=== PATIENT | male | born 1945 | race Caucasian/White ===

== ENCOUNTER 2017-11-07 16:40 | Emergency (ER) | payer OTHER ==
[2017-11-07 16:52] VITALS: PULSE 68; O2SAT 98
[2017-11-07] MEDS ORDERED: Alum-Mag Hydrox-Simethicone Susp (30 mL) PO STA (17:34)
--- NOTE | 2017-11-07 17:43 | ED PDOC ---
HPI: Abdomen Time Seen by Provider: 11/07/17 17:33 Chief Complaint (Nursing): Abdominal Pain Chief Complaint (Provider): Abdominal Pain History Per: Patient History/Exam Limitations: no limitations Onset/Duration Of Symptoms: Days (x2) Outside of [place] travel?: No Current Symptoms Are (Timing): Still Present Severity: None Quality Of Discomfort: "Pain" Associated Symptoms: denies: Fever, Nausea, Vomiting, Diarrhea Exacerbating Factors: None Alleviating Factors: None Additional Complaint(s): 72 year old male with a past medical history of ulcer, hernia, hypertension, diabetes and hypercholesterolemia presents to the emergency department complaining of abdominal pain x2 days. The patient reports that he had an endoscopy 4 years ago and was diagnosed with ulcers. He states that he was prescribed medications with which he has been compliant but says they have not offered him any relief. Patient reports that his pain worsened between yesterday and today prompting him to come into the emergency room to be evaluated. Patient also complains of feeling bloated. Denies vomiting, black/ bloody stools, nausea, urinary symptoms, diarrhea. Of note: Patient also states that he has been compliant with his hypertension medication but his blood pressure is not being controlled. PMD: Jame Gould Past Medical History Reviewed: Historical Data, Nursing Documentation, Vital Signs Vital Signs: Last Vital Signs Temp 98.4 F 11/07/17 21:23 Pulse 68 11/07/17 21:23 Resp 18 11/07/17 21:23 BP 194/99 H 11/07/17 21:23 Pulse Ox 98 11/10/17 05:32 - Medical History PMH: Anxiety, Hiatal Hernia, HTN, Hypercholesterolemia - Surgical History Surgical History: Endoscopy (4years ago) - Family History Family History: States: Unknown Family Hx - Living Arrangements Living Arrangements: With Family - Social History Current smoker - smoking cessation education provided: No Ex-Smoker (has not smoked in the last 12 months): No Alcohol: None Drugs: Denies - Home Medications Home Medications: Ambulatory Orders Medication Instructions Recorded Cyclobenzaprine HCl [Flexeril] 5 mg PO BID PRN #15 tab 02/15/15 LORazepam [Ativan] 0.5 mg PO DAILY 02/15/15 Lisinopril 5 mg PO DAILY 02/15/15 Metformin Hydrochloride/Tisha 1 tab PO BID 02/15/15 [Janumet 1000 mg-50 mg] Metoprolol Tartrate [Lopressor] 50 mg PO DAILY 02/15/15 Omeprazole [Prilosec] 1 tab PO DAILY 02/15/15 Zolpidem Tartrate [Zolpidem] 10 mg PO DAILY 02/15/15 - Allergies Allergies/Adverse Reactions: Allergies Allergy/AdvReac Type Severity Reaction Status Date / Time aspirin Allergy Mild RASH Verified 11/07/17 16:52 Review of Systems ROS Statement: Except As Marked, All Systems Reviewed And Found Negative Gastrointestinal: Positive for: Abdominal Pain, Other (No black/bloody stools). Negative for: Nausea, Vomiting, Diarrhea Physical Exam - Reviewed Nursing Documentation Reviewed: Yes Vital Signs Reviewed: Yes - Physical Exam Appears: Positive for: Non-toxic, No Acute Distress Head Exam: Positive for: ATRAUMATIC, NORMAL INSPECTION, NORMOCEPHALIC Skin: Positive for: Normal Color, Warm, Dry. Negative for: Rash Eye Exam: Positive for: Normal appearance, EOMI, PERRL. Negative for: Scleral icterus Neck: Positive for: Normal, Painless ROM, Supple Cardiovascular/Chest: Positive for: Regular Rate, Rhythm, Chest Non Tender. Negative for: Gallop, Murmur, Tachycardia Respiratory: Positive for: Normal Breath Sounds. Negative for: Rales, Rhonchi, Wheezing, Respiratory Distress Gastrointestinal/Abdominal: Positive for: Bowel Sounds, Soft, Tenderness ( tenderness around hernia), Hernia (reducible midline ventral hernia 3 cm in length). Negative for: Mass, Guarding, Rebound Back: Positive for: Normal Inspection. Negative for: L CVA Tenderness, R CVA Tenderness, Vertebral Tenderness Extremity: Positive for: Normal ROM. Negative for: Tenderness, Deformity, Swelling Neurologic/Psych: Positive for: Alert, Oriented - Laboratory Results Result Diagrams: 11/07/17 17:54 11/07/17 17:54 - ECG O2 Sat by Pulse Oximetry: 98 (RA) Pulse Ox Interpretation: Normal Medical Decision Making Medical Decision Makin Initial Impression 72 year old male presenting with gastritis vs GERD vs Peptic Ulcer disease Initial Plan: * CMP * Lipase * CBC * Lidocaine 2% visou 15mL PO * Maalox Plus 30mL Morphine 4mg IVP * Reevaluation 1855 Labs reviewed show elevated white count of 1400. therfore CT scan will be perofrmed. Patient will be signed out to Dr. James at [address] scan. Documented by Delmy Parsons acting as a scribe for Tesha Sparks. All medical record entries made by the Scribe were at my direction and personally dictated by me. I have reviewed the chart and agree that the record accurately reflects my personal performance of the history, physical exam, medical decision making, and the department course for this patient. I have also personally directed, reviewed, and agree with the discharge instructions and disposition. Disposition - Clinical Impression Clinical Impression: Abdominal pain, Appendicitis, Left against medical advice - Patient ED Disposition Is Patient to be Admitted: Transfer of Care - Disposition Disposition: Against Medical Advice Disposition Time: 05:33 Condition: SERIOUS Additional Instructions: SIGA CON MENDOZA MDICO LO ANTES POSIBLE REGRESE A LA ER NARANJO PRONTO GUEVARA SEA POSIBLE PARA EL TRATAMIENTO DE LA APENDICITIS - ANTIBITICOS Y CIRUGA Instructions: Appendicitis in Adults, Leaving Against Medical Advice Forms: [employer] (Armenian) Print Language: SWAZI Patient Signed Over To: Ike James Y
[2017-11-07 18:01] LABS: BASO # 0.1 K/uL (0.0-0.2); BASO % 0.7 % (0.0-2.0); EOS # 0.1 K/uL (0.0-0.7); EOS % 0.6 % (0.0-4.0); LYMPH # 1.3 K/uL (1.0-4.3); LYMPH % 9.1 % (20.0-40.0); MEAN CELL VOLUME 84.8 fl (80.0-94.0); MEAN CORPUSCULAR HEMOGLOBIN 27.8 pg (27.0-31.0); MEAN CORPUSCULAR HGB CONC 32.8 g/dL (33.0-37.0); MEAN PLATELET VOLUME 9.8 fl (7.2-11.7); MONO # 0.7 K/uL (0.0-0.8); MONO % 4.7 % (0.0-10.0); NEUT # 12.1 K/uL (1.8-7.0); NEUT % 84.9 % (50.0-75.0); PLATELET COUNT 192 K/uL (130-400); RBC 5.04 Mil/uL (4.40-5.90); RED CELL DISTRIBUTION WIDTH 13.3 % (11.5-14.5); WHITE BLOOD COUNT 14.3 K/uL (4.8-10.8)
[2017-11-07] MEDS ORDERED: Alum-Mag Hydrox-Simethicone Susp (30 mL) ONE (18:06)
[2017-11-07 18:13] LABS: ALB/GLOB RATIO 1.2 (1.0-2.1); ALBUMIN 4.5 g/dL (3.5-5.0); ALT/SGPT 41 U/L (21-72); AST/SGOT 26 U/L (17-59); BLOOD UREA NITROGEN 13 mg/dl (9-20); CALCIUM 10.2 mg/dL (8.4-10.2); GFR AFRICAN-AMERICAN > 60; GFR NON-AFRICAN AMERICAN > 60; LIPASE 142 U/L (23-300)
[2017-11-07 19:13] LABS: LYMPHOCYTE 10 % (20-50); MONOCYTE 6 % (0-10); NEUTROPHIL 84 % (42-75); PLATELET ESTIMATE NORMAL (NORMAL); TOTAL CELLS COUNTED 100
[2017-11-07 19:14] LABS: ANISOCYTOSIS SLIGHT; LARGE PLATELETS PRESENT; MICROCYTOSIS SLIGHT; OVALOCYTES SLIGHT; TEARDROP CELLS SLIGHT
[2017-11-07] MEDS ORDERED: Iohexol 300 100 ML IJ ONE (19:15)
[2017-11-07] MEDS ORDERED: Sodium Chloride 0.9% 100 ML ONE (19:15)
--- NOTE | 2017-11-07 19:35 | ED PDOC ---
- Laboratory Results Result Diagrams: 11/07/17 17:54 11/07/17 17:54 - ECG O2 Sat by Pulse Oximetry: 98 (RA) Pulse Ox Interpretation: Normal Medical Decision Making Medical Decision Making: Patient signed out to provider at [address] Sparks pending CT scan. 2018 EXAM: CT Abdomen and Pelvis With Intravenous Contrast CLINICAL HISTORY: 72 years old, male; Pain; Abdominal pain; Localized; Upper; Patient HX: Epigastric ruq luq pain. Hiatal herniia. HTN dm ulcer. High cholesterol TECHNIQUE: Axial computed tomography images of the abdomen and pelvis with intravenous contrast. All CT scans at this facility use one or more dose reduction techniques, viz.: automated exposure control; ma/kV adjustment per patient size (including targeted exams where dose is matched to indication; i.e. head); or iterative reconstruction technique. Coronal and sagittal reformatted images were created and reviewed. CONTRAST: 98 mL of OMNIPAQUE administered intravenously. COMPARISON: No relevant prior studies available. FINDINGS: Limitations: Motion artifact - mild. Lower thorax: Minimal atelectasis/scarring. Small hiatal hernia. ABDOMEN: Liver: Fatty infiltration. Gallbladder and bile ducts: No calcified stones. No ductal dilation. Pancreas: No ductal dilation. No mass. Spleen: No splenomegaly. Adrenals: No mass. Kidneys and ureters: No mass. No hydronephrosis. Stomach and bowel: Probable underdistention of sigmoid colon. No definite mural thickening. No obstruction. Appendix: Enlarged appendix, measuring up to 1.2 cm in diameter. Mucosal enhancement. Minimal stranding about appendix. PELVIS: Bladder: Unremarkable. Reproductive: Unremarkable as visualized ABDOMEN and PELVIS: Intraperitoneal space: No significant fluid collection. No free air. Bones/joints: Degenerative changes of spine. No acute fracture. Soft tissues: Few small ventral hernias containing fat. Tiny umbilical hernia containing fat. Tiny right inguinal hernia containing fat. Vasculature: Mild atherosclerotic disease. No aneurysm. Lymph nodes: No pathologically enlarged lymph nodes. IMPRESSION: 1. Acute appendicitis. 2. Incidental/non-acute findings are described above 2035 Zosyn 4.[address] Mcbride Surgery information technology manager was paged. In demand promotional marketing analyst Caitlin Tsang [phone] was used to communicate with patient. Explained to patient that he has appendicitis and he needs admission and surgery. However patient states that he has a phobia of hospitals and is refusing to stay. Patient states that he will see his doctor tomorrow. He is alert and oriented x3 and understands the risks of leaving which include sepsis and and that delay in treatment will increase morbidity if he chooses to return. Patient was given the opportunity to ask all questions but adamantly insists that he wants to go home and rest before he makes any decisions. Explained that appendicitis does not go away on its own and there is a risk of perforation and rupture of the appendix as well as septic shock. Patient still insists that he wants to leave against medical advice. Patient also refused IV antibiotics. Patient also informed of an increase in his blood pressure but he still does not wish to stay for treatment. This patient is choosing to leave against medical advice. The EP has personally explained to the pt that choosing to do so may result in permanent bodily harm or . The EP discussed at great length that without further evaluation and monitoring there may be unforeseen circumstances and/or deterioration causing permanent bodily harm or as a result of their choice. The pt verbalized these risks back to the physician in laymans terms. The pt is alert , oriented, and shows the mental capacity to make clear decisions regarding the pts health care at this time. The pt continues to wish to leave against medical advice. In light of the pts decision to leave AMA, follow-up has been arranged and the pt is aware of the importance of following up as instructed. The pt has been advised that they should return to the ED immediately if they change their mind at any time, or if thier condition begins to change or worsen in any way. Documented by Mil Parsons acting as a scribe for Ike James MD. All medical record entries made by the Scribe were at my direction and personally dictated by me. I have reviewed the chart and agree that the record accurately reflects my personal performance of the history, physical exam, medical decision making, and the department course for this patient. I have also personally directed, reviewed, and agree with the discharge instructions and disposition. Disposition Counseled Patient/Family Regarding: Studies Performed, Diagnosis - Clinical Impression Clinical Impression: Abdominal pain, Appendicitis, Left against medical advice - POA Present On Arrival: None - Disposition Disposition: AGAINST MEDICAL ADVICE Disposition Time: 21:02 Condition: SERIOUS Additional Instructions: SIGA CON MENDOZA MDICO LO ANTES POSIBLE REGRESE A LA ER NARANJO PRONTO GUEVARA SEA POSIBLE PARA EL TRATAMIENTO DE LA APENDICITIS - ANTIBITICOS Y CIRUGA Instructions: Appendicitis in Adults, Leaving Against Medical Advice Forms: [facility] (Amharic) Print Language: JORDANIAN
--- NOTE | 2017-11-07 20:18 | CT ---
EXAM: CT Abdomen and Pelvis With Intravenous Contrast CLINICAL HISTORY: 72 years old, male; Pain; Abdominal pain; Localized; Upper; Patient HX: Epigastric ruq luq pain. Hiatal herniia. HTN dm ulcer. High cholesterol TECHNIQUE: Axial computed tomography images of the abdomen and pelvis with intravenous contrast. All CT scans at this facility use one or more dose reduction techniques, viz.: automated exposure control; ma/kV adjustment per patient size (including targeted exams where dose is matched to indication; i.e. head); or iterative reconstruction technique. Coronal and sagittal reformatted images were created and reviewed. CONTRAST: 98 mL of OMNIPAQUE administered intravenously. COMPARISON: No relevant prior studies available. FINDINGS: Limitations: Motion artifact - mild. Lower thorax: Minimal atelectasis/scarring. Small hiatal hernia. ABDOMEN: Liver: Fatty infiltration. Gallbladder and bile ducts: No calcified stones. No ductal dilation. Pancreas: No ductal dilation. No mass. Spleen: No splenomegaly. Adrenals: No mass. Kidneys and ureters: No mass. No hydronephrosis. Stomach and bowel: Probable underdistention of sigmoid colon. No definite mural thickening. No obstruction. Appendix: Enlarged appendix, measuring up to 1.2 cm in diameter. Mucosal enhancement. Minimal stranding about appendix. PELVIS: Bladder: Unremarkable. Reproductive: Unremarkable as visualized. ABDOMEN and PELVIS: Intraperitoneal space: No significant fluid collection. No free air. Bones/joints: Degenerative changes of spine. No acute fracture. Soft tissues: Few small ventral hernias containing fat. Tiny umbilical hernia containing fat. Tiny right inguinal hernia containing fat. Vasculature: Mild atherosclerotic disease. No aneurysm. Lymph nodes: No pathologically enlarged lymph nodes. IMPRESSION: 1. Acute appendicitis. 2. Incidental/non-acute findings are described above.
[2017-11-07] MEDS ORDERED: Piperacillin/Tazobact 4.5 GM in Sodium Chloride 0.9% 100 ML IVPB STA (20:27)
[2017-11-07 21:07] VITALS: BP 194/99; RESP 18; TEMP 98.4
== END 2017-11-07 21:25 | disposition left against medical advice (07) ==
LOC: H.ER 16:40
DX: R10.9 Unspecified abdominal pain (principal); K35.80 Unspecified acute appendicitis; Z87.891 Personal history of nicotine dependence; I10 Essential (primary) hypertension; E11.622 Type 2 diabetes mellitus with other skin ulcer; E78.00 Pure hypercholesterolemia, unspecified
CPT/HCPCS: 74177; 80053; 83690; 85025; 96374; 99285; J2270; Q9967